=== PATIENT | male | born 2000 | race Caucasian/White ===

== ENCOUNTER 2024-08-29 12:30 | Inpatient (IN) | payer OTHER, SELFPAY ==
[2024-08-29] VITALS (9 sets, daily range): BP systolic 105–178; BP diastolic 58–95; PULSE 57–130; RESP 15–20; TEMP 36.6–36.8; O2SAT 96–100; BMI 22.3
--- NOTE | 2024-08-29 12:45 | ECG_ITS ---
Test Reason : ALTERED MENTAL Blood Pressure : */* mmHG Vent. Rate : 106 BPM Atrial Rate : 106 BPM P-R Int : 128 ms QRS Dur : 94 ms QT Int : 350 ms P-R-T Axes : 78 71 3 degrees QTcB Int : 464 ms Sinus tachycardia Otherwise normal ECG No previous ECGs available Referred By: Cindi Morgan Electronically Signed By: RUBEN NEWELL MD
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
--- NOTE | 2024-08-29 12:50 | PC.NURSE ---
Pt arrives to ED in PD custody, security and MD also at bedside. Pt given 300mg IM Ketamine en route, pt agitated upon arrival. 2mg IM Ativan given left deltoid- refer to medication restraint paperwork for documentation. Per MD Morgan, pt placed in soft restraints. 1:1 sitter at bedside for safety, placed on sales account manager, HR- 60s, maintaining O2 sat on RA high 90s. Pt responds to verbal stimuli, respirations even and unlabored, no increased wob/sob noted, nsr on sales account manager. Call campbell within reach, all needs met at this time.
[2024-08-29] MEDS: LORazepam 2 MG/ML VIAL IM (12:52)
[2024-08-29 13:07] LABS: MANUAL DIFF FLAG NO
[2024-08-29 13:08] LABS: Basophils Percent Auto 0.4 % (0-2); Eosinophils Absolute Auto 0.1 X10*3/uL (0.0-0.4); Eosinophils Percent Auto 0.6 % (0-4); Hematocrit 37.8 % (42.0-52.0); Hemoglobin 12.8 g/dl (14.0-18.0); Imm Gran Abs Auto 0.06 X10*3/uL (0.00-0.03); Imm Gran Pct Auto 0.6 % (0.0-0.4); Lymphocytes Absolute Auto 1.6 X10*3/uL (1.2-4.9); Lymphocytes Percent Auto 16.8 % (20-40); Mean Corpuscular HGB Conc 33.9 g/dl (31.0-36.0); Mean Corpuscular Hemoglobin 29.1 pg (27.0-33.0); Mean Corpuscular Volume 85.9 fL (80.0-98.0); Mean Platelet Volume 10.4 fL (9.4-12.4); Monocytes Absolute Auto 0.6 X10*3/uL (0.1-1.2); Monocytes Percent Auto 6.6 % (2-11); Neutrophils Absolute Auto 7.1 x10*3/uL (2.0-8.3); Platelet Count 217 X10*3/uL (160-400); Red Cell Distribution Width 13.1 % (11.0-16.0); White Blood Count 9.5 X10*3/uL (4.8-10.8)
[2024-08-29 13:26] LABS: Acetaminophen LAB < 3 mcg/mL (<30); Alanine Aminotransferase 36 U/L (0-40); Albumin Level 3.9 g/dL (3.5-5.0); Alkaline Phosphatase 47 U/L (39-117); Anion Gap 10 (12-20); Aspartate Amino Transferase 30 U/L (5-37); Bilirubin Direct 0.1 mg/dL (0.0-0.5); Bilirubin Total 0.4 mg/dL (0.0-1.0); Blood Urea Nitrogen 11 mg/dL (9-16); Calcium 8.9 mg/dL (8.4-10.2); Carbon Dioxide 26 mmol/L (22-29); Chloride 106 mmol/L (96-108); Creatinine Clr Calc Pharmacy 126.8; Estimated Glomerular Filt Rate > 60; Ethanol < 10 mg/dL; Glucose Random 242 mg/dL (60-115); Magnesium 1.5 mg/dL (1.6-2.6); Salicylate < 5.0 mg/dL (15-30); Sodium 139 mmol/L (135-145); Total Protein 6.8 g/dL (6.5-8.0)
[2024-08-29] MEDS: Magnesium Sulfate/H2O 2 GM/50 ML PIGGYBACK IV (13:58)
[2024-08-29] MEDS: Potassium Chloride ER 20 MEQ TAB.ER.PRT 40 MEQ PO (17:04)
--- NOTE | 2024-08-29 17:24 | PC.NURSE ---
Patient moved from ED 2 to Pod 2. Ambulates steadily. IV accesses removed by previous RN Karin Meyers. Showering at this time, provided towel & hygiene products.
--- OUTSIDE RECORDS SUMMARY | 2024-08-29 18:44 | XMS_ITS | Continuity of Care Document ---
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 Range?? Date/Time?? WBC 6.1 k/mm3 4 k/mm3 - 11 k/mm3 08/28/24 09:39:00 RBC 4.33 m/mm3??Low 4.7 m/mm3 - 6.1 m/mm3 08/28/24 09:39:00 Hgb 12.3 Gm/dL??Low 13.7 Gm/dL - 17.1 Gm/dL 08/28/24 09:39:00 Hct 38.5 %??Low 40.5 % - 50 % 08/28/24 09:39:00 MCV 88.9 femtoliters 80 femtoliters - 94 femtoliters 08/28/24 09:39:00 MCH 28.4 pg 27 pg - 34 pg 08/28/24 09:39:00 MCHC 31.9 Gm/dL??Low 33 Gm/dL - 37 Gm/dL 08/28/24 09:39:00 Platelet Count 216 k/mm3 150 k/mm3 - 460 k/mm3 08/28/24 09:39:00 RDW-SD 42.7 femtoliters ?? 08/28/24 09:39:00 MPV 10.7 femtoliters 9.4 femtoliters - 12.4 femtoliters 08/28/24 09:39:00 Nucleated RBC (Automated) 0 #/100 WBC'S ?? 08/28/24 09:39:00 Abs. NRBC 0 k/mm3 ?? 08/28/24 09:39:00 Abs. Neut 4 k/mm3 1.3 k/mm3 - 7 k/mm3 08/28/24 09:39:00 Abs. Lymph 1.5 k/mm3 0.8 k/mm3 - 3.1 k/mm3 08/28/24 09:39:00 Abs. [place] 0.5 k/mm3 0.4 k/mm3 - 1.3 k/mm3 08/28/24 09:39:00 Abs. Eo 0.1 k/mm3 0 k/mm3 - 0.4 k/mm3 08/28/24 09:39:00 Abs. Baso 0 k/mm3 0 k/mm3 - 0.1 k/mm3 08/28/24 09:39:00 Neut % 64.9 % 44 % - 76 % 08/28/24 09:39:00 Lymph % 24.4 % 15 % - 43 % 08/28/24 09:39:00 [place] % 8 % 4.5 % - 10.5 % 08/28/24 09:39:00 Eos % 2 % 0 % - 6 % 08/28/24 09:39:00 Baso % 0.5 % 0 % - 2 % 08/28/24 09:39:00 Imm Gran 0.2 % ?? 08/28/24 09:39:00 Abs. Imm Gran 0 k/mm3 ?? 08/28/24 09:39:00 Sodium 141 mmol/L 133 mmol/L - 145 mmol/L 08/28/24 09:39:00 Potassium 4 mmol/L 3.6 mmol/L - 5.2 mmol/L 08/28/24 09:39:00 Chloride 106 mmol/L 98 mmol/L - 107 mmol/L 08/28/24 09:39:00 Bicarbonate Level 25 mmol/L 22 mmol/L - 29 mmol/L 08/28/24 09:39:00 Anion Gap 10 mmol/L 4 mmol/L - 17 mmol/L 08/28/24 09:39:00 Glucose Level 92 mg/dL 70 mg/dL - 99 mg/dL 08/28/24 09:39:00 BUN 12 mg/dL 6 mg/dL - 20 mg/dL 08/28/24 09:39:00 Creatinine-Blood 0.88 mg/dL 0.7 mg/dL - 1.2 mg/dL 08/28/24 09:39:00 Estimated GFR Creatinine 124 ML/MIN/1.73 M2 ?? 08/28/24 09:39:00 Calcium 9.2 mg/dL 8.6 mg/dL - 10.5 mg/dL 08/28/24 09:39:00 TSH 2.35 uIU/mL 0.4 uIU/mL - 4.2 uIU/mL 08/28/24 09:39:00 Ethanol, Serum or Plasma NONE DETECTED ?? 08/28/24 09:39:00 Barbiturate Screen, Urine NONE DETECTED ?? 08/28/24 09:52:00 Cannabinoid Screen, Urine POSITIVE Abnormal ?? 08/28/24 09:52:00 Cocaine Metabolite Screen, Urine NONE DETECTED ?? 08/28/24 09:52:00 Benzodiazepine Screen, Urine NONE DETECTED ?? 08/28/24 09:52:00 Amphetamine Screen, Urine NONE DETECTED ?? 08/28/24 09:52:00 Opiate Screen, Urine NONE DETECTED ?? 08/28/24 09:52:00 COVID-19 by RT-PCR NEGATIVE ?? 08/28/24 09:32:00 HIV STAT Screen Result NEGATIVE ?? 08/28/24 09:39:00 Est Creatinine Clearance 146.99 mL/min ?? 08/28/24 10:31:11 ? Diagnostic Results CT Head/Brain W/O Contrast ?? 08/28/24 10:07:14 Examination: Noncontrast head CT performed on 08/28/2024. ?? History: Altered mental status.. ?? Technique and findings: ?? Contiguous 5 mm axial images were obtained from the skull base to the vertex without intravenous contrast. A dose modulated weight-based protocol was used. There are no prior similar studies currently available for direct comparison. ?? The visualized sinuses are free from disease. ?? The ventricular system and subarachnoid spaces are within normal limits. There is no intracranial hemorrhage, mass effect, or midline shift. No intra- or extra-axial fluid collections are identified. ?? The osseous structures are unremarkable. ?? Impression: ?? There is no acute intracranial abnormality. WSN: [id number] ? Ordering Physician: Stacy Malloy ?? Signed By: Justyna Hidalgo MD ECG 12-Lead ?? 09:38:08 Please click on pdf link to open report ?? Signed By: Luis Mayfield MD ?? ECG 12-Lead ?? 09:38:08 Ventricular Rate: 56 BPM Atrial Rate: 56 BPM P-R Interval: 134 ms QRS Duration: 104 ms Q-T Interval: 430 ms QTC Calculation(Bazett): 414 ms P [place]: -15 degrees R [place]: -5 degrees T [place]: 14 degrees Sinus bradycardia with sinus arrhythmia Otherwise normal ECG Confirmed ?? Signed By: Luis Mayfield MD Note * Stacy Malloy MD: PERFORM, SIGN, VERIFY Event Display: Patient Education Handout Authored Date: * Stacy Malloy MD: PERFORM Event Display: Patient Education Leaflets Authored Date: [id number] Bipolar Disorder ?? [id number] Bipolar Disorder Bipolar disorder is a serious, life-altering illness. It causes strong mood swings between depression and estrella. It used to be called manic depression. The mood swings are different from the normal ups and downs people have in their lives. They are more severe and last longer. They can seriously interfere with work and relationships. These episodes are changes from usual moods and behavior. They can be mild. Or they can be drastic and explosive. The time between feelings of depression and estrella varies with each person. It can be weeks, month, or even years. ??? In a manic episode, you may think fast and do things quickly. It may seem like you are getting a lot done. It may feel very good at first. But in the extreme, estrella can lead to a lifestyle that is disorganized and chaotic. You may take part in risky behavior. Examples are spending sprees, sexual acting-out, or drug use. In later stages, you may have no interest in food. You may not be able tosleep for days at a time. Your speech may speed up and become hard to understand. You may appear toothers as if you are in your own world. ??? In a depressive episode, you may feel a lack of interest in normal activities. Sometimes you feel sadness or guilt without any clear reason. Your thinking may become slow. You may also lack energy or good concentration, or feel hopeless. Some people have thoughts of harming themselves at this stage. Thoughts can even turn to suicide. You may feel OK between these phases. This does not mean that the illness is gone. People with thisdisorder will often have to treat it all their life. Correct use of medicines and ongoing medical and mental health support can greatly ease symptoms. They can enhance your quality of life. The exact cause of bipolar disorder is unknown. But there is a genetic link that makes a person more likely to get it. Using illegal drugs, such as speed (amphetamine) and cocaine raises a person's risk for this illness. Home care Here is what you can do at home: ??? Ongoing care and support can help you manage this disease. Find a health care provider and therapist who meet your needs. Get help right away when you feel like you may be heading into either a manic episode or a depressive state. ??? Take your medicine as prescribed. Get regular blood work to check the levels of medicine in your body. Do this??even if you think you don???t need to do it. ??? Don't change or stop taking your medicine unless your provider says it is OK to do so. Don't share or use another person's medicines. ??? Tell all your health care providers about all the prescriptions, [id number] medicines, and supplements you take.??Certain s upplements interact with medicines. They may cause dangerous side effects. You can also ask your pharmacist about medicine interactions before starting any new medicine or supplement. ??? Talk with your family and trusted friends about your thoughts and feelings. Ask them to help you notice behavior changes early. You can then get help and have your medicines adjusted, if needed. When you are feel ing well, make a management plan for a trusted friend or family member to help you during hard times. For example, you can ask them to hold your credit cards for you if you overspend during a estrella. Or they can get emergency help for you if your depression leads to suicidal thoughts. If your illness is severe, consider giving trusted people access to your providers. They can then work together to keep you safe. ??? Don't drink alcohol or use illegal drugs. They can bring on an episode and make it worse. ??? If your life is severely affected by this illness, the Americans with Disabilities Act (ADA) may provide help. The ADA protects people with chronic physical and mental health conditions. Contact your local ADA office for help if you are having trouble keeping jobs, managing workplaceissues, or caring for yourself because of your bipolar disorder. The U.[place]. Department of Justice hasa toll-free ADA information line at 646-064-7728 (voice) or 855-249-5607 (TTY). It can help you find a local office. Or??go to www.ada.gov for more information. ??? Join an in-person or virtual support group for people with mental health conditions. ?? Follow-up care Follow up with your health care provider or therapist as advised. They can help you find ways to improve your life. ?? In a crisis call or text 988 When you call or text 988, you will be connected to trained crisis counselors at the Suicide Prevention Lifeline. Online chat is also available. Lifeline is free and available 27/12. 988 counselors will work closely with 911 to get you the care you need. Call or text 988 if you have: ??? Suicidal thoughts, a plan to harm yourself, and the means to do so. ??? Serious thoughts of hurting someone else. ??? Trouble breathing. ??? Confusion. ??? Drowsiness or trouble wakening. ??? Fainting or loss of consciousness. ??? A rapid heart rate, a very low heart rate, or a new irregular heart rate. ??? A seizure. ??? New chest pain that becomes more severe, lasts longer, or spreads into your shoulder, arm, neck, jaw, or back. ?? When to get medical advice Contact your health care provider right away if you: ??? Feel like your symptoms are getting worse (depression, agitation, or excessive energy). ??? Are not eating or sleeping for more than 48 hours.??? Feel out of control (racing thoughts, paranoid thoughts, hallucinations, or poor concentration). ??? Feel like you want to harm yourself or another. ??? Are unable to care for yourself. ?? Last Reviewed Date: 2024 ?? 7330-5057 [employer]. All rights reserved. This information is not intended as a substitute for professional medical care. Always follow your healthcare professional's instructions. ?? Patient Care team information Care Team Personnel Name: Not on Staff, PCP Position: S Physician (General Medicine) Member Role: PCP Care Team Related Persons Name: NICOLE OTERO Name: SHANNA RAMYA Insurance Providers Guarantor name: NICOLE OTERO Health Plan Information #: 1 Payer: [employer] Member Number: [id number] Policy Number: NA Group Number: [id number] Health Plan Information #: 2 Payer: [facility] Member Number: [id number] Policy Number: NA Group Number: [id number]
--- OUTSIDE RECORDS SUMMARY | 2024-08-29 18:44 | XMS_ITS | Data Portability ---
Author Organization [facility] [address] Address [address] [place] [address] Assessment No assessment recorded. Plan of Treatment Reminders Order Date Submit Date Provider Last Modified By Organization Details Last Modified Time Details Appointments None recorded. Lab None recorded. Referral None recorded. Procedures None recorded. Surgeries None recorded. Imaging None recorded. Medication Orders ibuprofen 200 mg tablet 2022 023 Not available 13:10:51 ibuprofen 800 mg tablet 2022 023 [id number], [address] [place], [address], 13:08:40 Patient TargetsNo targets recorded. Patient Instructions Encounter Date Encounter Id Patient Instructions Last Modified By Organization Details Last Modified Time 09/29/2022 [id number] headache: care instructions [email or web address] Not available 09/29/2022 13:06:44 depression treatment: care instructions [email or web address] Not available 09/29/2022 13:07:47 anxiety disorder : care instructions [email or web address] Not available 09/29/2022 13:07:48 anxiety and ainsley c coping education [email or web address] Not available 09/29/2022 13:07:47 Take the ibuprofen as prescribed if needed for your headache. You have received your first dose here at [facility]. You have some complaints of anxiety and depression but deny any suicidal or homicidal ideation. You have expressed that you are not interested in seeing a therapist or psychiatrist at this time. It is therefore advised that you follow-up with a primary care physician as soon as possible not only for your headache complaint but also for your anxiety and depression. See printed instructions and work note. Seek Emergency Medical evaluation for any worsening symptoms particularly for fever, rash, stiff neck, vision/speech/gai t disturbance, intractable nausea/vomiting, numbness or weakness of the extremities, worsening anxiety or depression, thoughts of hurting yourself or others. [email or web address] Not available 09/29/2022 13:15:57 Reason for Referral None Reported. Problems No Known Problems Medical Equipment None Reported. Allergies No known drug allergies Medications Name Sig Start Date Stop Date Status Note LastModified by Organization Details LastModified Time ibuprofen 800 mg tablet Take 1 tablet 3 times a day by oral route as needed. 2022 active Not Available Not Available Not Avai lable ibuprofen 200 mg tablet Take 4 tablets by oral route. 2022 active Not Available Not Available Not Avai lable multivitamin active Not Available Not Available Not Available Vitals Date Recorded Body height Pain severity - 0-10 verbal numeric rating [Score] - Reported Respiratory rate Oxygen saturation Oxygen saturation in Arterial blood by Pulse oximetry Heart rate Body temperature Body mass index (BMI) Body weight Systolic blood pressure Diastolic blood pressure Provider Name and Address Organization Details Last Updated DateTime 182.88 cm 7 20 /min 99 % 99 % 65 /min 97.9 [degF] 23 kg/m2 34827.9 1 g 125 mm[Hg] 72 mm[Hg] Keri Dillard [employer] 11:50:05 Social History Question Answer Notes LastModified by [employer] Details LastModified Time Tobacco Smoking Status Never Smoker Keri hassan PA Nishant [facility] 09/29/2022 11:48:47 What Is Your Level Of Alcohol Consumption? None Information not available 09/29/2022 Have You Had Direct Contact, Or Contact During Intimacy, With Monkeypox Rash, Scabs, Or Body Fluids From A Person With Monkeypox? No Information not available 09/29/2022 Do You Use Any Illicit Or Recreational Drugs? No Information not available 09/29/2022 Have You Recently Traveled Abroad? No Information not available 09/29/2022 Do You Or Have You Ever Used Any Other Forms Of Tobacco Or Nicotine? No Information not available 09/29/2022 Sex: Unknown Functional Status None recorded. Mental Status None recorded. Family History Relationship Description Onset Age of this Age Resolved Age Notes LastModified by Organization Details LastModified Time Father No current problems or disability Not available 09/29 11:48:41 Mother No current problems or disability Not available 09/29 11:48:41 Medical History No medical history recorded. Immunizations Vaccine Type Date Status Note Provider Nam e and Address Organization Details Recorded Time Hib, unspecified formulation 4 completed Keri [place] null, PA - [facility] 09/29/2022 11:48:12 Hib, unspecified formulation 2 completed Keri Barbie null, PA - [facility] 09/29/2022 11:48:12 Hib, unspecified formulation 2 completed Keri [place] null, PA - [facility] 09/29/2022 11:48:12 Hib, unspecified formulation 2 completed Keri [place] null, PA - [facility] 09/29/2022 11:48:12 IPV 3 completed Keri Barbie null, PA - [facility] 09/29/2022 11:48:13 IPV 2 completed Keri Barbie null, PA - [facility] 09/29/2022 11:48:13 IPV 2 completed Keri Barbie null, PA - [facility] 09/29/2022 11:48:13 IPV 6 completed Keri Barbie null, PA - [facility] 09/29/2022 11:48:13 MMR 4 completed Keri Barbie null, PA - [facility] 09/29/2022 11:48:13 MMR 7 completed Keri Barbie null, PA - [facility] 09/29/2022 11:48:13 COVID-19, mRNA, LNP-S, PF, 100 mcg/0.5mL dose or 50 mcg/0.25mL dose 1 completed Keri [place] null, PA - [facility] 09/29/2022 11:48:13 pneumococcal conjugate PCV 7 2 completed Keri Barbie null, PA - [facility] 09/29/2022 11:48:13 pneumococcal conjugate PCV 7 2 completed Keri [place] null, PA - [facility] 09/29/2022 11:48:13 pneumococcal conjugate PCV 7 2 completed Keri [place] null, PA - [facility] 09/29/2022 11:48:13 pneumococcal conjugate PCV 7 6 completed Keri [place] null, PA - [facility] 09/29/2022 11:48:13 influenza, unspecified formulation 9 completed Keri [place] null, PA - [facility] 09/29/2022 11:48:13 influenza, unspecified formulation 9 completed Keri [place] null, PA - [facility] 09/29/2022 11:48:13 varicella 3 completed Keri Barbie null, PA - [facility] 09/29/2022 11:48:13 varicella 8 completed Keri Barbie null, PA - [facility] 09/29/2022 11:48:13 Hep B, unspecified formulation 2 completed Keri Barbie null, PA - [facility] 09/29/2022 11:48:13 Hep B, unspecified formulation 2 completed Keri Barbie null, PA - [facility] 09/29/2022 11:48:13 Hep B, unspecified formulation 3 completed Keri Barbie null, PA - [facility] 09/29/2022 11:48:13 Influenza, split virus, trivalent, preservative 9 completed Keri [place] null, PA - [facility] 09/29/2022 11:48:13 DTaP 4 completed Keri [place] null, PA - [facility] 09/29/2022 11:48:13 DTaP 2 completed Keri [place] null, PA - [facility] 09/29/2022 11:48:13 DTaP 2 completed Keri Barbie null, PA - [facility] 09/29/2022 11:48:13 DTaP 2 completed Keri [place] null, PA - [facility] 09/29/2022 11:48:13 DTaP 6 completed Keri [place] null, PA - [facility] 09/29/2022 11:48:13 Influenza, split virus, quadrivalent, PF 7 completed Keri Barbie null, PA - [facility] 09/29/2022 11:48:13 Hep A, unspecified formulation 8 completed Keri Barbie null, PA - [facility] 09/29/2022 11:48:13 Hep A, unspecified formulation 9 completed Keri [place] null, PA - [facility] 09/29/2022 11:48:13 Past Encounters Encounter ID Performer Location Encounter Start Date Encounter Closed Date Diagnosis/Indication Diagnosis SNOMED-CT Code Diagnosis ICD10 Code Diagnosis Note [id number] [address] [place] [address] 05/01/2019 17:23:19 05/01/2019 18:02:54 [id number] [address] [place] [phone] 11/01/2019 17:58:20 11/01/2019 19:00:01 [id number] [address] [place] [id number] 04/08/2020 09:36:32 04/08/2020 11:49:06 [id number] [address] [place] [address] 12/18/2021 14:50:25 12/18/2021 17:50:44 [id number] Clair Padron MD [address] [place] [id number] 09/29/2022 10:39:51 09/29/2022 13:21:00 Acute headache 350614669 R51.9 Anxiety 23917776 F41.9 Depressive disorder 3548 9007 F32.A Health Concerns Section Related Observation LastModified by Organization Detai ls LastModified Time None Recorded Concern Status LastModified by Organization Details LastModified Time None Recorded Advance Directives Directive None Recorded Payers Encounter Date Sequence Insurance Name Policy Number Policy Miramontes Covered Member ID Miramontes Member ID Guarantor Name 11/01/2019 1 [facility]MEDICAID HMO) [id number] Rajiian J Land [id number] Rajiian Land 04/08/2020 1 [facility] (MEDICAID HMO) [id number] Rajiian J Land [id number] Rajiian Land 12/18/2021 1 [facility] (MEDICAID HMO) [id number] Rajiian J Land [id number] Rajiian Land 09/29/2022 1 [facility] (MEDICAID HMO) [id number] Rajiian J Land [id number] Rajiian Land Notes Date Note Type Note Provider Name and Address Organization Details Recorded Time 09/29/2022 text/html Headache UCRepor aylin bypatient.source of patient informationPatient arrived at Urgent Care amb[facility] Quality:not the worst headache ever; similar to previous headaches; Similar but lasting longer than usual. Severity:moderate Duration:constant; 2 days. Onset/Timing:gradual Context:not related to trauma Aggravating factors:A bit worse with head movement. Alleviating factors:nothing gives relief Associated Symptoms:no vomiting; no sensitivity to light; no confusion; no slurred speech; no preceeding aura; no double vision; normal feeling/sensation; no motor paralysis; no dizziness; no sleep disturbances; no nosebleeds; no hoarseness; no sore throat; no hearing loss; no cold symptoms; no tearing/watery eyesNotes:22 year old male presenting for evaluation of a headache as well as some anxiety and depression. He has had headaches on occasion in the past that are similar to his current headache but they usually resolve in one day. This headache has been present for 2 days. He was treated for strep throat 2 weeks ago and no longer has any throat pain. No fever, chills, rash, stiff neck, double or blurry vision, speech or gait disturbance, numbness or weakness of the extremities or head trauma. 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 His work hours are long and his job is boring. He has aspirations to become a professional boxer. He has some stress at home since he is still living with his family. He has never been hospitalized or seen a therapist for anxiety or depression. No prior psychiatric medication. He denies any suicidal or homicidal ideation and is future oriented. He does not have any interest in seeing a therapist or psychiatrist but wonders if antidepressant medication can be prescribed. here. He is currently looking for a new PCP. No hx substance use or abuse. Clair Padron MD [address] [facility] [address], [address], [place] - [facility] 09/29/2022 13:28:44
--- NOTE | 2024-08-29 19:11 | PC.NURSE ---
patient appears mildly anxious/tearful mom in attendance, being seen by care team presently.
[2024-08-29 19:25] LABS: Appearance Urine Clear; Color Urine Yellow; Glucose Urine UA Negative (Negative); Leukocyte Esterase Urine Negative (Negative); Nitrite Urine Negative (Negative); Specific Gravity - Urine 1.015 (1.005-1.025); Urine Blood Negative (Negative); Urine Ketones Negative (Negative); Urine Protein Negative (Neg-Trace)
[2024-08-29 19:29] LABS: Bacteria Urine None Seen (None Seen); Hyaline Casts Urine 0-2 /LPF (0-2); RBC Urine 0-2 /HPF (0-2); Squamous Epithelial Cell Urine 0-2 /HPF (0-2); WBC Urine 0-5 /HPF (0-5)
[2024-08-29 19:35] LABS: Amphetamine Screen Urine Not Detected (Not Detect); Barbiturates, Urine Not Detected (Not Detect); Benzodiazepines Screen Urine Not Detected (Not Detect); Buprenorphine Scr Not Detected (Not Detect); Cannabinoid Screen Urine POSITIVE (Not Detect); Cocaine Screen Urine Not Detected (Not Detect); Fentanyl, urine Not Detected (Not Detect); Methadone Screen, Urine Not Detected (Not Detect); Opiate Screen Urine Not Detected (Not Detect); Oxycodone Screen Urine Not Detected (Not Detect); Phencyclidine Screen Urine Not Detected (Not Detect)
[2024-08-30] MEDS: traZODone HCL 50 MG TABLET PO ×2 (02:24→21:45)
[2024-08-30 02:37] VITALS: BP 105/57; PULSE 62; RESP 16; TEMP 36.9; O2SAT 100
--- NOTE | 2024-08-30 10:15 | PC.NURSE ---
patient awake/alert visiting with mother, presently patient is calm/cooporative, plan of care ongoing.
--- NOTE | 2024-08-30 11:47 | PHA.MEDREC ---
Addendum entered by Kenzie Obando RPh 08/30/24 11:56: Reviewed by [facility] Original Note: Pharmacy Consult ? Medication Reconciliation Pharmacy has completed the medication reconciliation. Spoke with patient and patients mother at bedside. Patient confirmed he has not started taking the Olanzapine or Trazodone yet and as of right now he is only taking a Melatonin 3mg tab as needed for sleep, Ibuprofen 200mg as needed for pain and a Flinstone multivitamin gummy once a day. I updated the med rec; nurse confirmed patient Olanzapine and Trazodone.
[2024-08-30 12:22] LABS: Anion Gap 11 (12-20); Blood Urea Nitrogen 15 mg/dL (9-16); Calcium 9.5 mg/dL (8.4-10.2); Carbon Dioxide 31 mmol/L (22-29); Chloride 103 mmol/L (96-108); Creatinine Clr Calc Pharmacy 140.3; Estimated Glomerular Filt Rate > 60; Glucose Random 84 mg/dL (60-115); Magnesium 1.9 mg/dL (1.6-2.6); Potassium 4.1 mmol/L (3.3-5.1); Sodium 141 mmol/L (135-145)
[2024-08-30 13:58] VITALS: BP 111/51; PULSE 68; RESP 18; TEMP 37.1; O2SAT 100
[2024-08-30 14:48] VITALS: BMI 21.5
[2024-08-30 15:08] VITALS: BP 117/66; PULSE 69; RESP 16; TEMP 37.1; O2SAT 100
--- NOTE | 2024-08-30 15:43 | PC.NURSE ---
Signed CV and [address] Gamble; treatment team notified. Three day up on Tuesday09/04/24.
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
[2024-08-30 19:53] VITALS: BP 131/75; PULSE 90; RESP 18; TEMP 37.9; O2SAT 100
[2024-08-30 21:44] VITALS: TEMP 37
[2024-08-30] MEDS: Lithium Carbonate ER 450 MG TABLET.ER PO (21:44)
[2024-08-30] MEDS: Melatonin 3 MG TABLET PO (21:44)
[2024-08-30] MEDS: OLANZapine 5 MG TABLET PO (21:44)
[2024-08-31 07:15] VITALS: BP 89/42; PULSE 56; RESP 14; TEMP 36.8; O2SAT 100
[2024-08-31] MEDS: Lithium Carbonate ER 450 MG TABLET.ER PO ×2 (08:40→21:38)
[2024-08-31 08:50] LABS: Estimated Average Glucose 105 mg/dL; Hemoglobin A1C 121.6726 umol/L; Hemoglobin A1c % 5.3 % (<6.0); Total Hemoglobin (HGBA1C) 3522.4701 umol/L
[2024-08-31 09:02] LABS: Cholesterol 190 mg/dL (<200); HDL Cholesterol 66 mg/dL (>40); LDL Cholesterol Calculated 101 mg/dL (<100); Triglycerides 117 mg/dL (<150)
[2024-08-31 09:19] LABS: Free T4 (Free Thyroxine) 0.93 ng/dL (0.71-1.85); Thyroid Stimulating Hormone 2.53 uIU/mL (0.32-4.0)
[2024-08-31 09:35] LABS: Folate 10.4 ng/mL (> or = 4.0); Vitamin B12 279 pg/mL (200-900)
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
[2024-08-31 19:32] VITALS: BP 123/67; PULSE 93; RESP 18; TEMP 37.4; O2SAT 100
[2024-08-31] MEDS: OLANZapine 5 MG TABLET PO (21:38)
[2024-08-31] MEDS: Melatonin 3 MG TABLET PO (21:38)
[2024-08-31] MEDS: traZODone HCL 50 MG TABLET PO (21:38)
[2024-08-31] MEDS: Magnesium Hydrox/Alum Hydrox 30 ML ORAL.SUSP PO (21:46)
[2024-09-01 07:52] VITALS: BP 136/63; PULSE 74; RESP 16; TEMP 37.2; O2SAT 100
[2024-09-01] MEDS: Lithium Carbonate ER 450 MG TABLET.ER PO ×2 (08:26→20:27)
--- NOTE | 2024-09-01 18:09 | P.PNPSI_ITS ---
Subjective Subjective Date of Service: 09/01/24 Reason For Visit: psychosis Interim History: calm, cooperative. no complaints or requests. feels he is doing well on current regimen. per staff, denies Sx. working out. isolative. pleasant, cooperative. reading the bible. slept 8 hours. taking medications. Mental Status Exam Mental Status Exam Narrative: adequately groomed, own attire. cooperative. no PMA/PMR. very polite. speech incr rate. nml amount, loudness, tone. decr latency. thoughts linear and logical in brief interaction. affect hyper-intense, non-labile. mood not assessed. no SI/SIBI/HI/AVH expressed. Diagnostics Vital Signs (24Hr): Vital Signs - 24 hr 08/31/24 19:32 09/01/24 07:52 Temperature 99.4 F 98.9 F Pulse Rate 93 74 Respiratory Rate 18 16 Blood Pressure 123/67 136/63 Pulse Oximetry 100 100 Oxygen Delivery Method Room Air Room Air BMI result Body Mass Index 21.5 Labs 08/29/24 13:00 08/30/24 11:57 Labs: Laboratory Results - last 48 hr 08/31/24 08:31 Estimat Average Glucose 105 Hemoglobin A1c % 5.3 Triglycerides 117 Cholesterol 190 LDL Cholesterol, Calc 101 H HDL Cholesterol 66 Vitamin B12 279 Folate 10.4 TSH 2.53 Free T4 0.93 Medications Medications Current Medications Acetaminophen (Acetaminophen 325 Mg Tablet) 650 mg PO Q6H PRN PRN Reason: Headache/Pain, Scale 1-10 Al Hydroxide/Mg Hydroxide (Magnesium Hydrox/Alum Hydrox 30 Ml Oral.Susp) 30 ml PO Q6H PRN PRN Reason: Heartburn/Nausea Last Admin: 08/31/24 21:46 Dose: 30 ml Haloperidol (Haloperidol 5 Mg Tablet) 5 mg PO Q4H PRN PRN Reason: agitation Hydroxyzine HCl (Hydroxyzine Hcl 25 Mg Tablet) 25 mg PO Q6H PRN PRN Reason: mild anxiety [place] Carbonate ([place] Carbonate Er 450 Mg Tablet.Er) 450 mg PO BID JAMESON Last Admin: 09/01/24 08:26 Dose: 450 mg Magnesium Hydroxide (Milk Of Magnesia 30 Ml Oral.Susp) 30 ml PO DAILY PRN PRN Reason: Constipation Melatonin (Melatonin 3 Mg Tablet) 3 mg PO BEDTIME PRN PRN Reason: Sleep Last Admin: 08/31/24 21:38 Dose: 3 mg Nicotine Polacrilex (Nicotine Polacrilex 2 Mg Gum) 4 mg BUCCAL Q2H PRN PRN Reason: Nicotine Cravings Olanzapine (Olanzapine 5 Mg Tablet) 5 mg PO BEDTIME JAMESON Last Admin: 08/31/24 21:38 Dose: 5 mg Trazodone HCl (Trazodone Hcl 50 Mg Tablet) 50 mg PO BEDTIME JAMESON Last Admin: 08/31/24 21:38 Dose: 50 mg Trazodone HCl (Trazodone Hcl 50 Mg Tablet) 50 mg PO BEDTIME MRX1 PRN PRN Reason: Insomnia Allergies Allergies Allergy/AdvReac Type Severity Reaction Status Date / Time Unable to Assess Allergy Verified 08/29/24 12:44 Assessment & Plan Assessment & Plan (1) Leyla: Status: Acute Code(s): F30.9 - Manic episode, unspecified Plan 08/31: continue zyprexa 5 QHS and lithium 450 BID. check level in 5 days. substantial improvement, poor insight. unclear how sustainable gains might be without further inpatient treatment. 09/01: continues to feel well, somewhat hyper-intense but in good behavioral control. continue current regimen. Reason for continued inpatient stay Substantial Risk for: inability to function and rapid decompensation Time Spent With Patient Time: Total time managing care of this patient today ____ minutes.
[2024-09-01 20:00] VITALS: BP 135/76; PULSE 95; RESP 15; TEMP 37.6; O2SAT 98
[2024-09-01] MEDS: Magnesium Hydrox/Alum Hydrox 30 ML ORAL.SUSP PO (20:26)
[2024-09-01] MEDS: Melatonin 3 MG TABLET PO (20:27)
[2024-09-01] MEDS: OLANZapine 5 MG TABLET PO (20:27)
[2024-09-01] MEDS: traZODone HCL 50 MG TABLET PO (20:27)
[2024-09-01] MEDS: Simethicone 80 MG TAB.CHEW PO (22:04)
[2024-09-02 07:32] VITALS: BP 139/65; PULSE 71; RESP 16; TEMP 36.4; O2SAT 100
[2024-09-02] MEDS: Lithium Carbonate ER 450 MG TABLET.ER PO ×2 (08:33→20:46)
[2024-09-02] MEDS: Simethicone 80 MG TAB.CHEW PO (17:06)
--- NOTE | 2024-09-02 19:46 | HO.PSYCHPN ---
Subjective Subjective Date of Service: 09/02/24 Reason For Visit: psychosis Interim History: no change in presentation. overly bright. denies s/e of medications, asking about discharge. per staff, relaxed, withdrawn, visible. taking meds. denies dep/anx. calm, pleasant. prayer and exercise helpful. slept 8 hours. asking about DC soon. Mental Status Exam Mental Status Exam Narrative: adequately groomed, own attire. cooperative. no PMA/PMR. very polite. speech incr rate. nml amount, loudness, tone. decr latency. thoughts linear and logical in brief interaction. affect hyper-intense, non-labile. mood not assessed. no SI/SIBI/HI/AVH expressed. Diagnostics Vital Signs (24Hr): Vital Signs - 24 hr 09/01/24 20:00 09/02/24 07:32 Temperature 99.7 F 97.5 F Pulse Rate 95 71 Respiratory Rate 15 16 Blood Pressure 135/76 139/65 Pulse Oximetry 98 100 Oxygen Delivery Method Room Air BMI result Body Mass Index 21.5 Labs 08/29/24 13:00 08/30/24 11:57 Medications Medications Current Medications Acetaminophen (Acetaminophen 325 Mg Tablet) 650 mg PO Q6H PRN PRN Reason: Headache/Pain, Scale 1-10 Al Hydroxide/Mg Hydroxide (Magnesium Hydrox/Alum Hydrox 30 Ml Oral.Susp) 30 ml PO Q6H PRN PRN Reason: Heartburn/Nausea Last Admin: 09/01/24 20:26 Dose: 30 ml Haloperidol (Haloperidol 5 Mg Tablet) 5 mg PO Q4H PRN PRN Reason: agitation Hydroxyzine HCl (Hydroxyzine Hcl 25 Mg Tablet) 25 mg PO Q6H PRN PRN Reason: mild anxiety [place] Carbonate ([place] Carbonate Er 450 Mg Tablet.Er) 450 mg PO BID [facility] Last Admin: 09/02/24 08:33 Dose: 450 mg Magnesium Hydroxide (Milk Of Magnesia 30 Ml Oral.Susp) 30 ml PO DAILY PRN PRN Reason: Constipation Melatonin (Melatonin 3 Mg Tablet) 3 mg PO BEDTIME PRN PRN Reason: Sleep Last Admin: 09/01/24 20:27 Dose: 3 mg Nicotine Polacrilex (Nicotine Polacrilex 2 Mg Gum) 4 mg BUCCAL Q2H PRN PRN Reason: Nicotine Cravings Olanzapine (Olanzapine 5 Mg Tablet) 5 mg PO BEDTIME [facility] Last Admin: 09/01/24 20:27 Dose: 5 mg Simethicone (Simethicone 80 Mg Tab.Chew) 80 mg PO QIDWMHS PRN PRN Reason: gas Last Admin: 09/02/24 17:06 Dose: 80 mg Trazodone HCl (Trazodone Hcl 50 Mg Tablet) 50 mg PO BEDTIME JAMESON Last Admin: 09/01/24 20:27 Dose: 50 mg Trazodone HCl (Trazodone Hcl 50 Mg Tablet) 50 mg PO BEDTIME MRX1 PRN PRN Reason: Insomnia Allergies Allergies Allergy/AdvReac Type Severity Reaction Status Date / Time Unable to Assess Allergy Verified 08/29/24 12:44 Assessment & Plan Assessment & Plan (1) Leyla: Status: Acute Code(s): F30.9 - Manic episode, unspecified Plan 08/31: continue zyprexa 5 QHS and lithium 450 BID. check level in 5 days. substantial improvement, poor insight. unclear how sustainable gains might be without further inpatient treatment. 09/01: continues to feel well, somewhat hyper-intense but in good behavioral control. continue current regimen. 09/02: no change in presentation. continue current mgmt. Reason for continued inpatient stay Substantial Risk for: harm to others and rapid decompensation Time Spent With Patient Time: Total time managing care of this patient today ____ minutes.
[2024-09-02 20:00] VITALS: BP 119/78; PULSE 97; RESP 16; TEMP 38.1; O2SAT 99
[2024-09-02] MEDS: OLANZapine 5 MG TABLET PO (20:45)
[2024-09-02] MEDS: Melatonin 3 MG TABLET PO (20:46)
[2024-09-02] MEDS: traZODone HCL 50 MG TABLET PO (20:46)
[2024-09-02 21:05] VITALS: TEMP 37.7
[2024-09-03 07:38] VITALS: BP 115/63; PULSE 80; RESP 16; TEMP 37.1; O2SAT 100
[2024-09-03] MEDS: Lithium Carbonate ER 450 MG TABLET.ER PO ×2 (08:31→21:25)
--- NOTE | 2024-09-03 11:58 | HO.PSYCHPN ---
Subjective Subjective Date of Service: 09/03/24 Reason For Visit: psychosis Interim History: calm, pleasant, cooperative. upset and feeling blindsided by MD's informing him that MD intends to file for commitment tomorrow if pt does not withdraw his 3-day notice. states he has been doing very well and feels he deserves to go home. asks to have his parents come in for a family meeting. per staff, 3-day up tomorrow. taking meds. religiously preoccupied. attending groups. slept 8 hours. Mental Status Exam Mental Status Exam Narrative: adequately groomed, own attire. cooperative. no PMA/PMR. very polite. speech incr rate. nml amount, loudness, tone. decr latency. thoughts linear and logical in brief interaction. affect hyper-intense, min-labile. mood not assessed. no SI/SIBI/HI/AVH expressed. Diagnostics Vital Signs (24Hr): Vital Signs - 24 hr 09/02/24 20:00 09/02/24 21:05 09/03/24 07:38 Temperature 100.5 F H 99.8 F 98.7 F Pulse Rate 97 80 Respiratory Rate 16 16 Blood Pressure 119/78 115/63 Pulse Oximetry 99 100 Oxygen Delivery Method Room Air Room Air BMI result Body Mass Index 21.5 Labs 08/29/24 13:00 08/30/24 11:57 Medications Medications Current Medications Acetaminophen (Acetaminophen 325 Mg Tablet) 650 mg PO Q6H PRN PRN Reason: Headache/Pain, Scale 1-10 Al Hydroxide/Mg Hydroxide (Magnesium Hydrox/Alum Hydrox 30 Ml Oral.Susp) 30 ml PO Q6H PRN PRN Reason: Heartburn/Nausea Last Admin: 09/01/24 20:26 Dose: 30 ml Haloperidol (Haloperidol 5 Mg Tablet) 5 mg PO Q4H PRN PRN Reason: agitation Hydroxyzine HCl (Hydroxyzine Hcl 25 Mg Tablet) 25 mg PO Q6H PRN PRN Reason: mild anxiety [place] Carbonate ([place] Carbonate Er 450 Mg Tablet.Er) 450 mg PO BID JAMESON Last Admin: 09/03/24 08:31 Dose: 450 mg Magnesium Hydroxide (Milk Of Magnesia 30 Ml Oral.Susp) 30 ml PO DAILY PRN PRN Reason: Constipation Melatonin (Melatonin 3 Mg Tablet) 3 mg PO BEDTIME PRN PRN Reason: Sleep Last Admin: 09/02/24 20:46 Dose: 3 mg Nicotine Polacrilex (Nicotine Polacrilex 2 Mg Gum) 4 mg BUCCAL Q2H PRN PRN Reason: Nicotine Cravings Olanzapine (Olanzapine 5 Mg Tablet) 5 mg PO BEDTIME JAMESON Last Admin: 09/02/24 20:45 Dose: 5 mg Simethicone (Simethicone 80 Mg Tab.Chew) 80 mg PO QIDWMHS PRN PRN Reason: gas Last Admin: 09/02/24 17:06 Dose: 80 mg Trazodone HCl (Trazodone Hcl 50 Mg Tablet) 50 mg PO BEDTIME JAMESON Last Admin: 09/02/24 20:46 Dose: 50 mg Trazodone HCl (Trazodone Hcl 50 Mg Tablet) 50 mg PO BEDTIME MRX1 PRN PRN Reason: Insomnia Allergies Allergies Allergy/AdvReac Type Severity Reaction Status Date / Time Unable to Assess Allergy Verified 08/29/24 12:44 Assessment & Plan Assessment & Plan (1) Leyla: Status: Acute Code(s): F30.9 - Manic episode, unspecified Plan 08/31: continue zyprexa 5 QHS and lithium 450 BID. check level in 5 days. substantial improvement, poor insight. unclear how sustainable gains might be without further inpatient treatment. 09/01: continues to feel well, somewhat hyper-intense but in good behavioral control. continue current regimen. 09/02: no change in presentation. continue current mgmt. 09/03: continue current mgmt. file for commitment tomorrow unless pt rescinds 3-day notice. check lithium tomorrow evening (ordered). Reason for continued inpatient stay Substantial Risk for: harm to self, harm to others, inability to function and rapid decompensation Time Spent With Patient Time: Total time managing care of this patient today __25__ minutes.
[2024-09-03 19:20] VITALS: BP 122/68; PULSE 90; RESP 16; TEMP 37.6; O2SAT 98
[2024-09-03] MEDS: traZODone HCL 50 MG TABLET PO (21:24)
[2024-09-03] MEDS: OLANZapine 5 MG TABLET PO (21:24)
[2024-09-04 07:51] VITALS: BP 139/79; PULSE 61; RESP 16; TEMP 36.7; O2SAT 100
[2024-09-04] MEDS: Lithium Carbonate ER 450 MG TABLET.ER PO ×2 (08:34→21:41)
--- NOTE | 2024-09-04 12:23 | HO.PSYCHPN ---
Subjective Subjective Date of Service: 09/04/24 Reason For Visit: psychosis Interim History: Met with patient; discussed with team; reviewed chart Patient reports that he is doing well and feels that he has demonstrated good behavioral control since he has been to the unit. Patient is currently on a 3 day notice and said he would like to go home and be with his family however if team felt he needed to stay longer he would. Magnetic Testing Technician discussed reasons for remaining on the unit and patient agreed. He denies depression, SI/HI/AVH. Mental Status Exam Mental Status Exam Narrative: adequately groomed, own attire. cooperative. no PMA/PMR. very polite. speech incr rate. nml amount, loudness, tone. No latency. thoughts linear and logical in brief interaction. Mood is good and affect congruent, a little constricted; denies any SI/SIBI/HI/AVH. Judgment/insight improving Diagnostics Vital Signs (24Hr): Vital Signs - 24 hr 09/03/24 19:20 09/04/24 07:51 Temperature 99.6 F 98.0 F Pulse Rate 90 61 Respiratory Rate 16 16 Blood Pressure 122/68 139/79 Pulse Oximetry 98 100 Oxygen Delivery Method Room Air Room Air BMI result Body Mass Index 21.5 Labs 08/29/24 13:00 09/04/24 19:57 Medications Medications Current Medications Acetaminophen (Acetaminophen 325 Mg Tablet) 650 mg PO Q6H PRN PRN Reason: Headache/Pain, Scale 1-10 Al Hydroxide/Mg Hydroxide (Magnesium Hydrox/Alum Hydrox 30 Ml Oral.Susp) 30 ml PO Q6H PRN PRN Reason: Heartburn/Nausea Last Admin: 09/01/24 20:26 Dose: 30 ml Haloperidol (Haloperidol 5 Mg Tablet) 5 mg PO Q4H PRN PRN Reason: agitation Hydroxyzine HCl (Hydroxyzine Hcl 25 Mg Tablet) 25 mg PO Q6H PRN PRN Reason: mild anxiety [place] Carbonate ([place] Carbonate Er 450 Mg Tablet.Er) 450 mg PO BID JAMESON Last Admin: 09/04/24 08:34 Dose: 450 mg Magnesium Hydroxide (Milk Of Magnesia 30 Ml Oral.Susp) 30 ml PO DAILY PRN PRN Reason: Constipation Melatonin (Melatonin 3 Mg Tablet) 3 mg PO BEDTIME PRN PRN Reason: Sleep Last Admin: 09/02/24 20:46 Dose: 3 mg Nicotine Polacrilex (Nicotine Polacrilex 2 Mg Gum) 4 mg BUCCAL Q2H PRN PRN Reason: Nicotine Cravings Olanzapine (Olanzapine 5 Mg Tablet) 5 mg PO BEDTIME JAMESON Last Admin: 09/03/24 21:24 Dose: 5 mg Simethicone (Simethicone 80 Mg Tab.Chew) 80 mg PO QIDWMHS PRN PRN Reason: gas Last Admin: 09/02/24 17:06 Dose: 80 mg Trazodone HCl (Trazodone Hcl 50 Mg Tablet) 50 mg PO BEDTIME JAMESON Last Admin: 09/03/24 21:24 Dose: 50 mg Trazodone HCl (Trazodone Hcl 50 Mg Tablet) 50 mg PO BEDTIME MRX1 PRN PRN Reason: Insomnia Allergies Allergies Allergy/AdvReac Type Severity Reaction Status Date / Time Unable to Assess Allergy Verified 08/29/24 12:44 Assessment & Plan Assessment & Plan (1) Leyla: Status: Acute Code(s): F30.9 - Manic episode, unspecified Plan 08/31: continue zyprexa 5 QHS and lithium 450 BID. check level in 5 days. substantial improvement, poor insight. unclear how sustainable gains might be without further inpatient treatment. 09/01: continues to feel well, somewhat hyper-intense but in good behavioral control. continue current regimen. 09/02: no change in presentation. continue current mgmt. 09/03: continue current mgmt. file for commitment tomorrow unless pt rescinds 3-day notice. check lithium tomorrow evening (ordered). 09/04 Patient reports that he is doing well and feels that he has demonstrated good behavioral control since he has been to the unit. Patient is currently on a 3 day notice and said he would like to go home and be with his family however if team felt he needed to stay longer he would. Magnetic Testing Technician discussed reasons for remaining on the unit and patient agreed. He denies depression, SI/HI/AVH. -Retracted 3 day -reviewed labs and lithium level subtherapeutic; will defer to primary team provider, regarding adjustments Patient educated on: diagnosis and medication risk/benefits Informed Consent: understands and further education needed Reason for continued inpatient stay Substantial Risk for: rapid decompensation Time Spent With Patient Time: Total time managing care of this patient today ____ minutes.
--- NOTE | 2024-09-04 13:52 | PC.NURSE ---
Patient retracted 3 day note.
[2024-09-04 20:00] VITALS: BP 128/83; PULSE 83; RESP 16; TEMP 36.9; O2SAT 100
[2024-09-04 20:14] LABS: Lithium 0.55 mmol/L (0.60-1.20)
[2024-09-04 20:19] LABS: Anion Gap 15 (12-20); Blood Urea Nitrogen 13 mg/dL (9-16); Carbon Dioxide 30 mmol/L (22-29); Chloride 99 mmol/L (96-108); Creatinine Clr Calc Pharmacy 115.8; Estimated Glomerular Filt Rate > 60; Glucose Random 101 mg/dL (60-115); Potassium 4.3 mmol/L (3.3-5.1); Sodium 140 mmol/L (135-145)
[2024-09-04] MEDS: traZODone HCL 50 MG TABLET PO (21:41)
[2024-09-04] MEDS: OLANZapine 5 MG TABLET PO (21:41)
[2024-09-05 07:52] VITALS: BP 129/76; PULSE 71; RESP 16; TEMP 36.9; O2SAT 100
[2024-09-05] MEDS: Lithium Carbonate ER 450 MG TABLET.ER PO (08:33)
[2024-09-05] MEDS: Lithium Carbonate 300 MG TABLET 150 MG PO (11:15)
--- NOTE | 2024-09-05 12:49 | P.PNPSI_ITS ---
Subjective Subjective Date of Service: 09/05/24 Reason For Visit: psychosis Interim History: calm, cooperative, pleasant. apologizes for previous oppositional behavior (MD noted no concerning behavior and said as much to pt). agreeable to increase lithium and DC trazodone. per staff, retracted 3-day notice yesterday. slept 7 hours. no anx/dep. visible, attending groups. taking meds. lithium 0.55. Mental Status Exam Mental Status Exam Narrative: adequately groomed, own attire. cooperative. no PMA/PMR. very polite. speech incr rate. nml amount, loudness, tone. nml latency. thoughts linear and logical. affect full range, normo-intense, non-labile; mood euthymic. no SI/SIBI/HI/AVH expressed. Judgment/insight improving Diagnostics Vital Signs (24Hr): Vital Signs - 24 hr 09/04/24 20:00 09/05/24 07:52 Temperature 98.4 F 98.5 F Pulse Rate 83 71 Respiratory Rate 16 16 Blood Pressure 128/83 129/76 Pulse Oximetry 100 100 Oxygen Delivery Method Room Air Room Air BMI result Body Mass Index 21.5 Labs 08/29/24 13:00 09/04/24 19:57 Labs: Laboratory Results - last 48 hr 09/04/24 19:57 Sodium 140 Potassium 4.3 Chloride 99 Carbon Dioxide 30 H Anion Gap 15 BUN 13 Creatinine 0.98 Estim Creat Clear Calc 115.8 Estimated GFR > 60 Random Glucose 101 Calcium 10.0 [place] 0.55 L Medications Medications Current Medications Acetaminophen (Acetaminophen 325 Mg Tablet) 650 mg PO Q6H PRN PRN Reason: Headache/Pain, Scale 1-10 Al Hydroxide/Mg Hydroxide (Magnesium Hydrox/Alum Hydrox 30 Ml Oral.Susp) 30 ml PO Q6H PRN PRN Reason: Heartburn/Nausea Last Admin: 09/01/24 20:26 Dose: 30 ml Haloperidol (Haloperidol 5 Mg Tablet) 5 mg PO Q4H PRN PRN Reason: agitation Hydroxyzine HCl (Hydroxyzine Hcl 25 Mg Tablet) 25 mg PO Q6H PRN PRN Reason: mild anxiety [place] Carbonate ([place] Carbonate Er 300 Mg Tablet.Er) 600 mg PO BID JAMESON Magnesium Hydroxide (Milk Of Magnesia 30 Ml Oral.Susp) 30 ml PO DAILY PRN PRN Reason: Constipation Melatonin (Melatonin 3 Mg Tablet) 3 mg PO BEDTIME PRN PRN Reason: Sleep Last Admin: 09/02/24 20:46 Dose: 3 mg Nicotine Polacrilex (Nicotine Polacrilex 2 Mg Gum) 4 mg BUCCAL Q2H PRN PRN Reason: Nicotine Cravings Olanzapine (Olanzapine 5 Mg Tablet) 5 mg PO BEDTIME JAMESON Last Admin: 09/04/24 21:41 Dose: 5 mg Simethicone (Simethicone 80 Mg Tab.Chew) 80 mg PO QIDWMHS PRN PRN Reason: gas Last Admin: 09/02/24 17:06 Dose: 80 mg Trazodone HCl (Trazodone Hcl 50 Mg Tablet) 50 mg PO BEDTIME MRX1 PRN PRN Reason: Insomnia Allergies Allergies Allergy/AdvReac Type Severity Reaction Status Date / Time Unable to Assess Allergy Verified 08/29/24 12:44 Assessment & Plan Assessment & Plan (1) Leyla: Status: Acute Code(s): F30.9 - Manic episode, unspecified Plan 08/31: continue zyprexa 5 QHS and lithium 450 BID. check level in 5 days. substantial improvement, poor insight. unclear how sustainable gains might be without further inpatient treatment. 09/01: continues to feel well, somewhat hyper-intense but in good behavioral control. continue current regimen. 09/02: no change in presentation. continue current mgmt. 09/03: continue current mgmt. file for commitment tomorrow unless pt rescinds 3-day notice. check lithium tomorrow evening (ordered). 09/04 Patient reports that he is doing well and feels that he has demonstrated good behavioral control since he has been to the unit. Patient is currently on a 3 day notice and said he would like to go home and be with his family however if team felt he needed to stay longer he would. Manager Of Supply Chain discussed reasons for remaining on the unit and patient agreed. He denies depression, SI/HI/AVH. -Retracted 3 day -reviewed labs and lithium level subtherapeutic; will defer to primary team provider, regarding adjustments 09/05: DC trazodone at HS as unnecessary. increase lithium to 600 BID (lithium level 0.55 on 450 BID). otherwise continue current mgmt. Reason for continued inpatient stay Substantial Risk for: harm to others and rapid decompensation Time Spent With Patient Time: Total time managing care of this patient today __25__ minutes.
[2024-09-05 19:57] VITALS: BP 131/62; PULSE 71; RESP 16; TEMP 37.4; O2SAT 100
[2024-09-05] MEDS: Lithium Carbonate ER 300 MG TABLET.ER 600 MG PO (22:02)
[2024-09-05] MEDS: OLANZapine 5 MG TABLET PO (22:02)
[2024-09-06 07:00] VITALS: BMI 22.5
[2024-09-06] MEDS: Lithium Carbonate ER 300 MG TABLET.ER 600 MG PO ×2 (07:55→20:07)
[2024-09-06 08:00] VITALS: BP 118/56; PULSE 70; RESP 16; TEMP 36.9; O2SAT 100
--- NOTE | 2024-09-06 15:10 | HO.PSYCHPN ---
Subjective Subjective Date of Service: 09/06/24 Reason For Visit: psychosis Interim History: calm, cooperative, pleasant. no change in presentation. hyper-intense, excessively bright. agreeable to lithium level tuesday elvira. per staff, 3-day up 09/10. cheerful, denies Sx. taking meds. 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 i can jump off of a skyscraper. i can save people and read their minds. Mental Status Exam Mental Status Exam Narrative: adequately groomed, own attire. cooperative. no PMA/PMR. very polite. speech incr rate. nml amount, loudness, tone. nml latency. thoughts linear and logical. affect full range, hyper-intense, non-labile; mood euthymic. no SI/SIBI/HI/AVH expressed. Judgment/insight improving Diagnostics Vital Signs (24Hr): Vital Signs - 24 hr 09/05/24 19:57 09/06/24 08:00 Temperature 99.3 F 98.4 F Pulse Rate 71 70 Respiratory Rate 16 16 Blood Pressure 131/62 118/56 L Pulse Oximetry 100 100 Oxygen Delivery Method Room Air Room Air BMI result Body Mass Index 22.5 Labs 08/29/24 13:00 09/04/24 19:57 Labs: Laboratory Results - last 48 hr 09/04/24 19:57 Sodium 140 Potassium 4.3 Chloride 99 Carbon Dioxide 30 H Anion Gap 15 BUN 13 Creatinine 0.98 Estim Creat Clear Calc 115.8 Estimated GFR > 60 Random Glucose 101 Calcium 10.0 [place] 0.55 L Medications Medications Current Medications Acetaminophen (Acetaminophen 325 Mg Tablet) 650 mg PO Q6H PRN PRN Reason: Headache/Pain, Scale 1-10 Al Hydroxide/Mg Hydroxide (Magnesium Hydrox/Alum Hydrox 30 Ml Oral.Susp) 30 ml PO Q6H PRN PRN Reason: Heartburn/Nausea Last Admin: 09/01/24 20:26 Dose: 30 ml Haloperidol (Haloperidol 5 Mg Tablet) 5 mg PO Q4H PRN PRN Reason: agitation Hydroxyzine HCl (Hydroxyzine Hcl 25 Mg Tablet) 25 mg PO Q6H PRN PRN Reason: mild anxiety [place] Carbonate ([place] Carbonate Er 300 Mg Tablet.Er) 600 mg PO BID JAMESON Last Admin: 09/06/24 07:55 Dose: 600 mg Magnesium Hydroxide (Milk Of Magnesia 30 Ml Oral.Susp) 30 ml PO DAILY PRN PRN Reason: Constipation Melatonin (Melatonin 3 Mg Tablet) 3 mg PO BEDTIME PRN PRN Reason: Sleep Last Admin: 09/02/24 20:46 Dose: 3 mg Nicotine Polacrilex (Nicotine Polacrilex 2 Mg Gum) 4 mg BUCCAL Q2H PRN PRN Reason: Nicotine Cravings Olanzapine (Olanzapine 5 Mg Tablet) 5 mg PO BEDTIME JAMESON Last Admin: 09/05/24 22:02 Dose: 5 mg Simethicone (Simethicone 80 Mg Tab.Chew) 80 mg PO QIDWMHS PRN PRN Reason: gas Last Admin: 09/02/24 17:06 Dose: 80 mg Trazodone HCl (Trazodone Hcl 50 Mg Tablet) 50 mg PO BEDTIME MRX1 PRN PRN Reason: Insomnia Allergies Allergies Allergy/AdvReac Type Severity Reaction Status Date / Time Unable to Assess Allergy Verified 08/29/24 12:44 Assessment & Plan Assessment & Plan (1) Lyela: Status: Acute Code(s): F30.9 - Manic episode, unspecified Plan 08/31: continue zyprexa 5 QHS and lithium 450 BID. check level in 5 days. substantial improvement, poor insight. unclear how sustainable gains might be without further inpatient treatment. 09/01: continues to feel well, somewhat hyper-intense but in good behavioral control. continue current regimen. 09/02: no change in presentation. continue current mgmt. 09/03: continue current mgmt. file for commitment tomorrow unless pt rescinds 3-day notice. check lithium tomorrow evening (ordered). 09/04 Patient reports that he is doing well and feels that he has demonstrated good behavioral control since he has been to the unit. Patient is currently on a 3 day notice and said he would like to go home and be with his family however if team felt he needed to stay longer he would. Mid Level Java Developer discussed reasons for remaining on the unit and patient agreed. He denies depression, SI/HI/AVH. -Retracted 3 day -reviewed labs and lithium level subtherapeutic; will defer to primary team provider, regarding adjustments 09/05: DC trazodone at HS as unnecessary. increase lithium to 600 BID (lithium level 0.55 on 450 BID). otherwise continue current mgmt. 09/06: slept well last night. no change in presentation. generally hyper-intense, overly bright. continue current mgmt. check labs tuesday elvira (ordered). 3-day up tuesday. Reason for continued inpatient stay Substantial Risk for: harm to self, harm to others, inability to function and rapid decompensation Time Spent With Patient Time: Total time managing care of this patient today __25__ minutes.
[2024-09-06 19:32] VITALS: BP 133/73; PULSE 91; RESP 16; TEMP 37.3; O2SAT 99
[2024-09-06] MEDS: OLANZapine 5 MG TABLET PO (22:11)
[2024-09-07 07:50] VITALS: BP 118/64; PULSE 82; RESP 16; TEMP 37.6; O2SAT 100
[2024-09-07] MEDS: Lithium Carbonate ER 300 MG TABLET.ER 600 MG PO ×2 (08:31→21:17)
--- NOTE | 2024-09-07 15:00 | HO.PSYCHPN ---
Subjective Subjective Date of Service: 09/07/24 Reason For Visit: psychosis Interim History: no change in presentation. per staff, 3-day up tuesday. attending groups. cheerful. taking meds. slept 8 hours. Mental Status Exam Mental Status Exam Narrative: adequately groomed, own attire. cooperative. no PMA/PMR. very polite. speech incr rate. nml amount, loudness, tone. nml latency. thoughts linear and logical. affect full range, hyper-intense, non-labile; mood euthymic. no SI/SIBI/HI/AVH expressed. Judgment/insight improving Diagnostics Vital Signs (24Hr): Vital Signs - 24 hr 09/06/24 19:32 09/07/24 07:50 Temperature 99.1 F 99.7 F Pulse Rate 91 82 Respiratory Rate 16 16 Blood Pressure 133/73 118/64 Pulse Oximetry 99 100 Oxygen Delivery Method Room Air Room Air BMI result Body Mass Index 22.5 Labs 08/29/24 13:00 09/04/24 19:57 Medications Medications Current Medications Acetaminophen (Acetaminophen 325 Mg Tablet) 650 mg PO Q6H PRN PRN Reason: Headache/Pain, Scale 1-10 Al Hydroxide/Mg Hydroxide (Magnesium Hydrox/Alum Hydrox 30 Ml Oral.Susp) 30 ml PO Q6H PRN PRN Reason: Heartburn/Nausea Last Admin: 09/01/24 20:26 Dose: 30 ml Haloperidol (Haloperidol 5 Mg Tablet) 5 mg PO Q4H PRN PRN Reason: agitation Hydroxyzine HCl (Hydroxyzine Hcl 25 Mg Tablet) 25 mg PO Q6H PRN PRN Reason: mild anxiety [place] Carbonate ([place] Carbonate Er 300 Mg Tablet.Er) 600 mg PO BID [facility] Last Admin: 09/07/24 08:31 Dose: 600 mg Magnesium Hydroxide (Milk Of Magnesia 30 Ml Oral.Susp) 30 ml PO DAILY PRN PRN Reason: Constipation Melatonin (Melatonin 3 Mg Tablet) 3 mg PO BEDTIME PRN PRN Reason: Sleep Last Admin: 09/02/24 20:46 Dose: 3 mg Nicotine Polacrilex (Nicotine Polacrilex 2 Mg Gum) 4 mg BUCCAL Q2H PRN PRN Reason: Nicotine Cravings Olanzapine (Olanzapine 5 Mg Tablet) 5 mg PO BEDTIME [facility] Last Admin: 09/06/24 22:11 Dose: 5 mg Simethicone (Simethicone 80 Mg Tab.Chew) 80 mg PO QIDWMHS PRN PRN Reason: gas Last Admin: 09/02/24 17:06 Dose: 80 mg Trazodone HCl (Trazodone Hcl 50 Mg Tablet) 50 mg PO BEDTIME MRX1 PRN PRN Reason: Insomnia Allergies Allergies Allergy/AdvReac Type Severity Reaction Status Date / Time Unable to Assess Allergy Verified 08/29/24 12:44 Assessment & Plan Assessment & Plan (1) Leyla: Status: Acute Code(s): F30.9 - Manic episode, unspecified Plan 08/31: continue zyprexa 5 QHS and lithium 450 BID. check level in 5 days. substantial improvement, poor insight. unclear how sustainable gains might be without further inpatient treatment. 09/01: continues to feel well, somewhat hyper-intense but in good behavioral control. continue current regimen. 09/02: no change in presentation. continue current mgmt. 09/03: continue current mgmt. file for commitment tomorrow unless pt rescinds 3-day notice. check lithium tomorrow evening (ordered). 09/04 Patient reports that he is doing well and feels that he has demonstrated good behavioral control since he has been to the unit. Patient is currently on a 3 day notice and said he would like to go home and be with his family however if team felt he needed to stay longer he would. Manager Beauty discussed reasons for remaining on the unit and patient agreed. He denies depression, SI/HI/AVH. -Retracted 3 day -reviewed labs and lithium level subtherapeutic; will defer to primary team provider, regarding adjustments 09/05: DC trazodone at HS as unnecessary. increase lithium to 600 BID (lithium level 0.55 on 450 BID). otherwise continue current mgmt. 09/06: slept well last night. no change in presentation. generally hyper-intense, overly bright. continue current mgmt. check labs tuesday (ordered). 3-day up tuesday. 09/07: no change in presentation. continue current mgmt. Reason for continued inpatient stay Substantial Risk for: harm to self, harm to others, inability to function and rapid decompensation Time Spent With Patient Time: Total time managing care of this patient today __25__ minutes.
[2024-09-07 20:00] VITALS: BP 128/61; PULSE 95; RESP 16; TEMP 37.1; O2SAT 98
[2024-09-07] MEDS: OLANZapine 5 MG TABLET PO (21:17)
[2024-09-08 08:00] VITALS: BP 109/66; PULSE 73; RESP 14; TEMP 37.2; O2SAT 100
[2024-09-08] MEDS: Lithium Carbonate ER 300 MG TABLET.ER 600 MG PO ×2 (08:15→21:39)
--- NOTE | 2024-09-08 15:42 | HO.PSYCHPN ---
Subjective Subjective Date of Service: 09/08/24 Reason For Visit: psychosis Interim History: met with pt; discussed with team pt reports doing well, good mood, eating and sleeping well; discussed his lithium and says it's been helpful; finds benefit in having stayed on unit longer. Looking forward to dc next week. Went to groups. Staff reports good behavioral and impulse control Mental Status Exam Mental Status Exam Narrative: adequately groomed, own attire. cooperative. no PMA/PMR. very polite. speech incr rate. nml amount, loudness, tone. nml latency. thoughts linear and logical. affect full range, hyper-intense, non-labile; mood euthymic. no SI/SIBI/HI/AVH expressed. Judgment/insight improving Diagnostics Vital Signs (24Hr): Vital Signs - 24 hr 09/07/24 20:00 09/08/24 08:00 Temperature 98.7 F 98.9 F Pulse Rate 95 73 Respiratory Rate 16 14 Blood Pressure 128/61 109/66 Pulse Oximetry 98 100 Oxygen Delivery Method Room Air Room Air BMI result Body Mass Index 22.5 Labs 08/29/24 13:00 09/04/24 19:57 Medications Medications Current Medications Acetaminophen (Acetaminophen 325 Mg Tablet) 650 mg PO Q6H PRN PRN Reason: Headache/Pain, Scale 1-10 Al Hydroxide/Mg Hydroxide (Magnesium Hydrox/Alum Hydrox 30 Ml Oral.Susp) 30 ml PO Q6H PRN PRN Reason: Heartburn/Nausea Last Admin: 09/01/24 20:26 Dose: 30 ml Haloperidol (Haloperidol 5 Mg Tablet) 5 mg PO Q4H PRN PRN Reason: agitation Hydroxyzine HCl (Hydroxyzine Hcl 25 Mg Tablet) 25 mg PO Q6H PRN PRN Reason: mild anxiety [place] Carbonate ([place] Carbonate Er 300 Mg Tablet.Er) 600 mg PO BID JAMESON Last Admin: 09/08/24 08:15 Dose: 600 mg Magnesium Hydroxide (Milk Of Magnesia 30 Ml Oral.Susp) 30 ml PO DAILY PRN PRN Reason: Constipation Melatonin (Melatonin 3 Mg Tablet) 3 mg PO BEDTIME PRN PRN Reason: Sleep Last Admin: 09/02/24 20:46 Dose: 3 mg Nicotine Polacrilex (Nicotine Polacrilex 2 Mg Gum) 4 mg BUCCAL Q2H PRN PRN Reason: Nicotine Cravings Olanzapine (Olanzapine 5 Mg Tablet) 5 mg PO BEDTIME JAMESON Last Admin: 09/07/24 21:17 Dose: 5 mg Simethicone (Simethicone 80 Mg Tab.Chew) 80 mg PO QIDWMHS PRN PRN Reason: gas Last Admin: 09/02/24 17:06 Dose: 80 mg Trazodone HCl (Trazodone Hcl 50 Mg Tablet) 50 mg PO BEDTIME MRX1 PRN PRN Reason: Insomnia Allergies Allergies Allergy/AdvReac Type Severity Reaction Status Date / Time Unable to Assess Allergy Verified 08/29/24 12:44 Assessment & Plan Assessment & Plan (1) Leyla: Status: Acute Code(s): F30.9 - Manic episode, unspecified Plan 08/31: continue zyprexa 5 QHS and lithium 450 BID. check level in 5 days. substantial improvement, poor insight. unclear how sustainable gains might be without further inpatient treatment. 09/01: continues to feel well, somewhat hyper-intense but in good behavioral control. continue current regimen. 09/02: no change in presentation. continue current mgmt. 09/03: continue current mgmt. file for commitment tomorrow unless pt rescinds 3-day notice. check lithium tomorrow evening (ordered). 09/04 Patient reports that he is doing well and feels that he has demonstrated good behavioral control since he has been to the unit. Patient is currently on a 3 day notice and said he would like to go home and be with his family however if team felt he needed to stay longer he would. Night Shift discussed reasons for remaining on the unit and patient agreed. He denies depression, SI/HI/AVH. -Retracted 3 day -reviewed labs and lithium level subtherapeutic; will defer to primary team provider, regarding adjustments 09/05: DC trazodone at HS as unnecessary. increase lithium to 600 BID (lithium level 0.55 on 450 BID). otherwise continue current mgmt. 09/06: slept well last night. no change in presentation. generally hyper-intense, overly bright. continue current mgmt. check labs tuesday (ordered). 3-day up tuesday. 09/07: no change in presentation. continue current mgmt. 09/08 stable; in good behavioral/impulse control. continue current tx plan Patient educated on: diagnosis and medication risk/benefits Informed Consent: understands Reason for continued inpatient stay Substantial Risk for: stable for discharge and med/psych decompensation Time Spent With Patient Time: Total time managing care of this patient today ____ minutes.
[2024-09-08 20:00] VITALS: BP 120/72; PULSE 82; RESP 14; TEMP 37.4; O2SAT 100
[2024-09-08] MEDS: OLANZapine 5 MG TABLET PO (21:40)
[2024-09-08] MEDS: traZODone HCL 50 MG TABLET PO (21:44)
[2024-09-09 08:00] VITALS: BP 122/58; PULSE 76; RESP 16; TEMP 36.8; O2SAT 99
[2024-09-09] MEDS: Lithium Carbonate ER 300 MG TABLET.ER 600 MG PO ×2 (09:03→21:15)
--- NOTE | 2024-09-09 15:01 | P.PNPSI_ITS ---
Subjective Subjective Date of Service: 09/09/24 Reason For Visit: psychosis Interim History: Met with patient; discussed with team pt polite, cooperative on approach; says he's good and looking forward to dc tomorrow. No complaints. Pt was overheard by sitter saying he has super horne, but when staff questioned he denied. Mental Status Exam Mental Status Exam Narrative: adequately groomed, own attire. cooperative. no PMA/PMR. very polite. speech incr rate. nml amount, loudness, tone. nml latency. thoughts linear and logical. affect full range, hyper-intense, non-labile; mood good . no SI/SIBI/HI/AVH expressed. Grandiose delusions quietly expressed; Judgment/insight impaired but improved Diagnostics Vital Signs (24Hr): Vital Signs - 24 hr 09/08/24 20:00 09/09/24 08:00 Temperature 99.4 F 98.2 F Pulse Rate 82 76 Respiratory Rate 14 16 Blood Pressure 120/72 122/58 L Pulse Oximetry 100 99 Oxygen Delivery Method Room Air Room Air BMI result Body Mass Index 22.5 Labs 08/29/24 13:00 09/04/24 19:57 Medications Medications Current Medications Acetaminophen (Acetaminophen 325 Mg Tablet) 650 mg PO Q6H PRN PRN Reason: Headache/Pain, Scale 1-10 Al Hydroxide/Mg Hydroxide (Magnesium Hydrox/Alum Hydrox 30 Ml Oral.Susp) 30 ml PO Q6H PRN PRN Reason: Heartburn/Nausea Last Admin: 09/01/24 20:26 Dose: 30 ml Haloperidol (Haloperidol 5 Mg Tablet) 5 mg PO Q4H PRN PRN Reason: agitation Hydroxyzine HCl (Hydroxyzine Hcl 25 Mg Tablet) 25 mg PO Q6H PRN PRN Reason: mild anxiety [place] Carbonate ([place] Carbonate Er 300 Mg Tablet.Er) 600 mg PO BID JAMESON Last Admin: 09/09/24 09:03 Dose: 600 mg Magnesium Hydroxide (Milk Of Magnesia 30 Ml Oral.Susp) 30 ml PO DAILY PRN PRN Reason: Constipation Melatonin (Melatonin 3 Mg Tablet) 3 mg PO BEDTIME PRN PRN Reason: Sleep Last Admin: 09/02/24 20:46 Dose: 3 mg Nicotine Polacrilex (Nicotine Polacrilex 2 Mg Gum) 4 mg BUCCAL Q2H PRN PRN Reason: Nicotine Cravings Olanzapine (Olanzapine 5 Mg Tablet) 5 mg PO BEDTIME JAMESON Last Admin: 09/08/24 21:40 Dose: 5 mg Simethicone (Simethicone 80 Mg Tab.Chew) 80 mg PO QIDWMHS PRN PRN Reason: gas Last Admin: 09/02/24 17:06 Dose: 80 mg Trazodone HCl (Trazodone Hcl 50 Mg Tablet) 50 mg PO BEDTIME MRX1 PRN PRN Reason: Insomnia Last Admin: 09/08/24 21:44 Dose: 50 mg Allergies Allergies Allergy/AdvReac Type Severity Reaction Status Date / Time Unable to Assess Allergy Verified 08/29/24 12:44 Assessment & Plan Assessment & Plan (1) Leyla: Status: Acute Code(s): F30.9 - Manic episode, unspecified Plan 08/31: continue zyprexa 5 QHS and lithium 450 BID. check level in 5 days. substantial improvement, poor insight. unclear how sustainable gains might be without further inpatient treatment. 09/01: continues to feel well, somewhat hyper-intense but in good behavioral control. continue current regimen. 09/02: no change in presentation. continue current mgmt. 09/03: continue current mgmt. file for commitment tomorrow unless pt rescinds 3-day notice. check lithium tomorrow evening (ordered). 09/04 Patient reports that he is doing well and feels that he has demonstrated good behavioral control since he has been to the unit. Patient is currently on a 3 day notice and said he would like to go home and be with his family however if team felt he needed to stay longer he would. Train Inspector discussed reasons for remaining on the unit and patient agreed. He denies depression, SI/HI/AVH. -Retracted 3 day -reviewed labs and lithium level subtherapeutic; will defer to primary team provider, regarding adjustments 09/05: DC trazodone at HS as unnecessary. increase lithium to 600 BID (lithium level 0.55 on 450 BID). otherwise continue current mgmt. 09/06: slept well last night. no change in presentation. generally hyper- intense, overly bright. continue current mgmt. check labs tuesday (ordered). 3-day up tuesday. 09/07: no change in presentation. continue current mgmt. 09/08 stable; in good behavioral/impulse control. continue current tx plan 09/09 pt remains polite, cooperative on approach and in good behavioral control; looking forward to dc tomorrow. No complaints. Pt was overheard by esteban saying he has super horne, but when staff questioned he denied. Patient educated on: diagnosis Informed Consent: understands and does not understand Reason for continued inpatient stay Substantial Risk for: stable for discharge Time Spent With Patient Time: Total time managing care of this patient today ____ minutes.
[2024-09-09 19:10] VITALS: BP 115/70; PULSE 77; RESP 16; TEMP 37.3; O2SAT 100
[2024-09-09 20:08] LABS: Lithium 0.75 mmol/L (0.60-1.20)
[2024-09-09 20:14] LABS: Anion Gap 13 (12-20); Blood Urea Nitrogen 10 mg/dL (9-16); Calcium 9.5 mg/dL (8.4-10.2); Carbon Dioxide 28 mmol/L (22-29); Chloride 102 mmol/L (96-108); Creatinine Clr Calc Pharmacy 127.9; Estimated Glomerular Filt Rate > 60; Glucose Random 92 mg/dL (60-115); Potassium 4.1 mmol/L (3.3-5.1); Sodium 139 mmol/L (135-145)
[2024-09-09] MEDS: OLANZapine 5 MG TABLET PO (21:15)
[2024-09-09] MEDS: traZODone HCL 50 MG TABLET PO (21:16)
[2024-09-10 07:46] VITALS: BP 117/77; PULSE 57; RESP 16; TEMP 36.6; O2SAT 100
[2024-09-10] MEDS: Lithium Carbonate ER 300 MG TABLET.ER 600 MG PO (08:26)
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
== END 2024-09-10 11:05 | disposition home or self-care (01) | DRG 753 ==
LOC: HO.ED 17:13 → HO.PADLT16 08-30 14:00
PROVIDERS: Emergency Medicine; Admitting Provider Psychiatry & Neurology Psychiatry; Emergency Provider Emergency Medicine; Visit Provider Psychiatry & Neurology Psychiatry
DX: F31.9 Bipolar disorder, unspecified (principal); E83.42 Hypomagnesemia; E87.6 Hypokalemia; Z62.810 Personal history of physical and sexual abuse in childhood; Z87.891 Personal history of nicotine dependence; Z78.1 Physical restraint status; Z79.899 Other long term (current) drug therapy
CPT/HCPCS: 36415; 80048; 80061; 80076; 80143; 80178; 80179; 80307; 81001; 82550; 82607; 82746; 83036; 83735; 84439; 84443; 85025; 93005; 99285; J2060; J3475; S9485

== ENCOUNTER → 2024-08-29 12:45 | Outpatient (BNV) | payer OTHER, SELFPAY | PROVIDERS: Emergency Provider Emergency Medicine; Visit Provider Internal Medicine Cardiovascular Disease | DX: R00.0 Tachycardia, unspecified (principal); R41.82 Altered mental status, unspecified | CPT/HCPCS: 93010 ==

== ENCOUNTER → 2024-08-30 13:23 | Outpatient (BNV) | payer OTHER, SELFPAY | PROVIDERS: Admitting Provider Psychiatry & Neurology Psychiatry; Emergency Provider Emergency Medicine; Visit Provider Psychiatry & Neurology Psychiatry | DX: F30.9 Manic episode, unspecified (principal) | CPT/HCPCS: 99231; 99233 ==